=== PATIENT | female | born 1975 | race Caucasian/White ===

== ENCOUNTER → 2018-06-12 | Outpatient (CLI) | payer BC, OTHER | LOC: RAD 08:33 | DX: R92.2 Inconclusive mammogram (principal) ==

== ENCOUNTER → 2019-01-21 | Outpatient (CLI) | payer BC, OTHER | LOC: MRI 10:22 | DX: N64.4 Mastodynia (principal); Z15.01 Genetic susceptibility to malignant neoplasm of breast ==